=== PATIENT | male | born 1950 | race Caucasian/White ===

== ENCOUNTER → 2016-11-06 | Outpatient (CLI) | payer MEDICARE ==
[~2016-11-06] MED LIST: ASPIRIN81 MG; B/P MED; DIABETES PILL; INSULIN; METFORMIN; NEXIUM; PAROXETINE CR12.5 MG; ZESTRIL5 MG
--- NOTE | ~2016-11-06 | CT55 ---
[facility] A Service of [facility] RADIOLOGY TEXT RESULTS PATIENT: ADIN HENRY LOCATION: [facility] : 48 UNIT #: [id number] AGE: [address]: Kelly La SEX: M ORDER DR: [id number] [facility] [address] [place], [place] [address] [id number] O MR#: [id number] Acc #: [id number] NAME: ADIN HENRY. : 1950 SEX: M STUDY DATE/TIME: 11/06/2016 13:27 UNIT: [facility] ROOM: STUDY DESCRIPTION: CT Chest W Con Attending Physician: Kelly La A.P.R.N. Referring Physician: Kelly La A.P.R.N. Ordering Physician: Kelly La A.P.R.N. Primary Care Physician: Generic Doctor Not In System MEDICAL IMAGING REPORT This report is preliminary unless electronic signature is present EXAM CT of chest with contrast. DATE OF EXAM 11/06/2016 INDICATIONS Abnormal chest radiograph performed at the doctor's office which showed a spot on the lung. Patient reports coughing for [address] images were obtained from the thoracic inlet through the dome of the diaphragm following administration of intravenous contrast material. NOTE: This CT exam was performed with one or more of the following radiation dose reduction techniques: automatic exposure control, adjustment of mA and/or kV according to patient size, and iterative reconstruction. FINDINGS The lungs appear clear. The thyroid gland, trachea and esophagus appear unremarkable. There is no pleural or pericardial effusion. Mediastinal and hilar lymph nodes do not appear pathologically enlarged. Thoracic aorta measures within normal size limits. There is no pleural or pericardial effusion. No focal infiltrates are identified, and I do not see any pulmonary nodules or masses. Patient is suspected to have diffuse hepatic steatosis. I do not see any other acute abnormalities within the upper abdomen. There is colonic diverticulosis without any evidence of diverticulitis. Review of bony windows does not demonstrate any aggressive osseous abnormalities. [facility] A Service of [facility] RADIOLOGY TEXT RESULTS PATIENT: ADIN HENRY LOCATION: [facility] #: [id number] : 48 UNIT #: [id number] AGE: [address]: Kelly La SEX: M ORDER DR: IMPRESSION 1. While patient reportedly has a history of pulmonary nodules seen on an outside chest radiograph, on today's examination, lungs appear clear. No focal infiltrates are seen. 2. The patient is suspected to have diffuse hepatic steatosis, please see the body of the report for any other additional incidental findings. Dictated by... Naomie Lepe M.D. THIS IS AN ELECTRONICALLY VERIFIED REPORT Naomie Lepe M.D. at 11/07/2016 5:27 PM LUZ/katie TD: 11/06/2016 20:06 JOB #: [id number] MEDICAL IMAGING REPORT COPY
[2016-11-06 13:26] LABS: POC - CREATININE 1.36 mg/dL (0.64-1.27)
== END | disposition home or self-care (01) ==
LOC: CCAT 12:25
PROVIDERS: Nurse Practitioner Adult Health
DX: R93.8 Abnormal findings on diagnostic imaging of other specified body structures (principal)
CPT/HCPCS: 71260; 82565; Q9967

== ENCOUNTER 2017-03-24 12:28 | Emergency (ER) | payer MEDICARE, OTHER ==
--- NOTE | ~2017-03-24 | EKG ---
PATIENT: ADIN HENRY UNIT #: [id number] Ventricular Rate: 86 BPM Atrial Rate: 86 BPM P-R Interval: 122 ms QRS Duration: 76 ms Q-T Interval: 358 ms QTC Calculation(Bezet): 428 ms P [place]: 46 degrees Calculated R [place]: 37 degrees Calculated T [place]: 76 degrees Diagnosis Line: Normal sinus rhythm Diagnosis Line: Nonspecific ST and T wave abnormality Diagnosis Line: Abnormal ECG Diagnosis Line: When compared with ECG of 17-OCT-2016 17:22, Diagnosis Line: Nonspecific T wave abnormality no longer evident Diagnosis Line: in Inferior leads Diagnosis Line: Nonspecific T wave abnormality, worse in Diagnosis Line: Anterolateral leads Diagnosis Line: Confirmed by CHELSEA SCHUMACHER MD ([id number]) on Diagnosis Line: 03/26/2017 12:56:28 PM INTERPRETING MD: WINSOME GOINS
--- NOTE | ~2017-03-24 | CR63 ---
[facility]. [facility] A Service of [facility] RADIOLOGY TEXT RESULTS PATIENT: ADIN HENRY LOCATION: SED : 48 UNIT #: [id number] AGE: [address]: Nathan Johnston MD SEX: M ORDER DR: [id number] [place] [id number] E MR#: [id number] Acc #: [id number] NAME: ADIN HENRY. : 1950 SEX: M STUDY DATE/TIME: 03/24/2017 UNIT: SED ROOM: STUDY DESCRIPTION: CR Chest 2 View Attending Physician: Nathan Johnston M.D. Ordering Physician: [facility] MEDICAL IMAGING REPORT This report is preliminary unless electronic signature is present. EXAM Chest 2 views 03/24/2017 1302 hours HISTORY 66-year-old man with congestion, shortness of air and cough for [address] 11/06/2016. FINDINGS Upright PA and lateral views of the chest demonstrate normal heart size. Mediastinal and hilar contours are normal. The lungs are clear. There is no effusion or pneumothorax. IMPRESSION No acute cardiopulmonary findings. Lungs are clear. There is no effusion. Dictated by... Joyce Connors M.D. THIS IS AN ELECTRONICALLY VERIFIED REPORT Joyce Connors M.D. at 03/25/2017 9:23 AM PIO/jose TD: 03/24/2017 21:57 JOB #: [id number] MEDICAL IMAGING REPORT Page 1 of 1
[~2017-03-24 12:28] MED LIST changes: -ZESTRIL5 MG
[2017-03-24] MEDS ORDERED: ZESTRIL5 MG (12:32)
[2017-03-24 13:23] LABS: BASOPHIL# 0.1 X10e3 (0-0.3); BASOPHIL% 0.9 % (0-2.5); EOSINOPHIL# 0.3 X10e3 (0-0.7); EOSINOPHIL% 2.8 % (0.0-7.0); HEMATOCRIT 44.5 % (38.0-50.0); HEMOGLOBIN 15.1 gm/dL (13.0-16.0); LYMPHOCYTE# 2.5 X10e3 (1.0-3.5); MEAN CELL VOLUME 97.2 FL (83-96); MEAN CORPUSCULAR HEMOGLOBIN 32.9 PG (28-34); MEAN CORPUSCULAR HGB CONC 33.9 g/dL (30-36); MEAN PLATELET VOLUME 7.4 FL (6.5-11.5); MONOCYTE# 0.8 X10e3 (0-1.0); MONOCYTE% 8.1 % (3.0-12.0); NEUTROPHIL# 6.2 X10e3 (1.5-7.1); NEUTROPHIL% 63.2 % (40-75); PLATELET COUNT 306 X10e3 (140-420); RED BLOOD COUNT 4.58 X10e (3.90-5.60); RED CELL DISTRIBUTION WIDTH 13.7 % (11.0-15.5); WHITE BLOOD COUNT 9.9 X10e3 (4.0-10.5)
[2017-03-24 13:26] LABS: POC - CKMB 3.7 ng/mL (0.0-7.9); POC - TROPONIN <0.05 ng/mL (<=0.05)
[2017-03-24 13:32] LABS: DIFF IND NO
[2017-03-24 13:35] LABS: ALBUMIN SERUM 4.5 g/dL (3.5-5.0); BILIRUBIN,TOTAL 0.3 mg/dL (0.2-2.0); BUN/CREATININE RATIO 12.85; CALCIUM SERUM 9.1 mg/dL (8.4-10.2); CREATININE SERUM 1.4 mg/dL (0.6-1.4); GLOM FILT RATE Estimated 51.6 mL/min (>60); POTASSIUM 4.3 mmol/L (3.5-5.1); PROTEIN TOTAL SERUM 7.6 g/dL (6.0-8.3)
== END 2017-03-24 15:24 | disposition home or self-care (01) ==
LOC: SED 12:28
PROVIDERS: Emergency Medicine; Physician Assistant
DX: J44.1 Chronic obstructive pulmonary disease with (acute) exacerbation (principal); J20.9 Acute bronchitis, unspecified; J44.0 Chronic obstructive pulmonary disease with (acute) lower respiratory infection; E11.40 Type 2 diabetes mellitus with diabetic neuropathy, unspecified; I10 Essential (primary) hypertension; K21.9 Gastro-esophageal reflux disease without esophagitis; F17.210 Nicotine dependence, cigarettes, uncomplicated; Z86.79 Personal history of other diseases of the circulatory system; Z88.2 Allergy status to sulfonamides; Z79.82 Long term (current) use of aspirin; Z79.4 Long term (current) use of insulin
CPT/HCPCS: 36415; 71020; 80053; 82010; 82553; 84484; 85025; 93005; 94640; 96374; 99285; J2930